=== PATIENT | male | born 1980 | race African-American/Black ===

== ENCOUNTER 2016-09-29 03:21 | Emergency (ER) | payer SELFPAY ==
[~2016-09-29] VITALS: Ht 172.7 cm; Wt 63.0 kg
[2016-09-29] MEDS ORDERED: SODIUM CHLORIDE 0.9% 1,000 ML IV ONE (03:54)
[2016-09-29] MEDS ORDERED: KETOROLAC 30MG/ML VIAL IV STA (03:54)
[2016-09-29] MEDS ORDERED: ONDANSETRON HCL 4MG/2ML VIAL IV STA (03:54)
[2016-09-29 04:05] VITALS: BP 98/68
[2016-09-29 04:32] LABS: BASOPHILS % 0.7 % (0.0-2.0); EOSINOPHILS % 0.1 % (0.0-5.0); HEMATOCRIT. 40.6 % (42.0-52.0); HEMOGLOBIN. 13.6 g/dL (14.0-18.0); LYMPHOCYTES % 6.9 % (20.0-50.0); MEAN CORPUSCULAR VOLUME 92.7 fL (80.0-94.0); MEAN PLATELET VOLUME 8.8 fl (7.4-10.4); MONOCYTES % 2.6 % (2.0-8.0); NEUTROPHILS % 89.7 % (40.0-76.0); PLATELET 202 x1000/uL (130-400); RED BLOOD CELL COUNT 4.38 mill/uL (4.7-6.1); RED CELL DISTRIBUTION WIDTH 12.8 % (11.6-14.6)
[2016-09-29 04:42] LABS: CHLORIDE 110 mEq/L (98-107)
[2016-09-29 04:46] LABS: PROTHROMBIN TIME 10.8 sec
[2016-09-29 04:58] LABS: CARBON DIOXIDE 26 mEq/L (21-32); ETHANOL BLOOD < 10 mg/dL
== END 2016-09-29 05:00 | disposition left against medical advice (07) ==
LOC: EDBD 03:21 → ER 03:21
DX: R10.13 Epigastric pain (principal); F12.10 Cannabis abuse, uncomplicated; R11.2 Nausea with vomiting, unspecified
CPT/HCPCS: 36415; 80053; 83690; 85025; 85610; 96361; 96374; 96375; 99284; G0482; J1885; J2405; J7030; X7700; Z7610